=== PATIENT | male | born 1970 | race Caucasian/White ===

== ENCOUNTER 2021-08-15 13:02 | Outpatient (CLI) | payer OTHER | END 2021-08-15 13:15 | disposition home or self-care (01) | LOC: SONOGRAMA 13:02 | DX: B19.10 Unspecified viral hepatitis B without hepatic coma (principal) ==

== ENCOUNTER 2021-10-11 16:32 | Emergency (ER) | payer OTHER ==
[~2021-10-11] VITALS: Ht 182.9 cm; Wt 57.2 kg
[2021-10-11] MEDS ORDERED: ENTECAVIR1 MG (17:11)
[2021-10-11] MEDS ORDERED: VIREAD300 MG (17:12)
== END 2021-10-11 20:39 | disposition home or self-care (01) ==
LOC: ER 16:32
DX: F06.4 Anxiety disorder due to known physiological condition (principal)

== ENCOUNTER 2021-10-12 11:30 | Emergency (ER) | payer OTHER ==
[~2021-10-12] VITALS: Ht 182.9 cm; Wt 56.7 kg
[~2021-10-12 11:30] MED LIST: ENTECAVIR1 MG; VIREAD300 MG
== END 2021-10-12 14:26 | disposition home or self-care (01) ==
LOC: ER 11:30
DX: R00.2 Palpitations (principal); F41.8 Other specified anxiety disorders

== ENCOUNTER 2022-12-19 08:09 | Emergency (ER) | payer OTHER ==
[~2022-12-19] VITALS: Ht 182.9 cm; Wt 56.7 kg
[2022-12-19] MEDS ORDERED: NOVOLOG100 UNIT/1 SQ (08:30)
== END 2022-12-19 13:30 | disposition home or self-care (01) ==
LOC: ER 08:09
DX: K29.90 Gastroduodenitis, unspecified, without bleeding (principal); E11.9 Type 2 diabetes mellitus without complications; Z79.4 Long term (current) use of insulin; B19.9 Unspecified viral hepatitis without hepatic coma